=== PATIENT | male | born 1950 | race Caucasian/White ===

== ENCOUNTER 2024-12-21 16:27 | Emergency (ER) | payer MEDICAID, SELFPAY ==
[2024-12-21] VITALS (30 sets, daily range): BP systolic 137–176; BP diastolic 64–82; PULSE 50–56; RESP 15–27; TEMP 36.8; O2SAT 89–97
--- NOTE | 2024-12-21 16:47 | ED_ITS ---
HPI - Neuro Symptoms/Deficit General Chief Complaint: Neuro Symptoms/Deficit Stated Complaint: slurring speech, weakness Time Seen by Provider: 12/21/24 16:45 Source: patient Mode of arrival: Ambulatory History of Present Illness HPI Narrative: Patient brought here by for left facial droop and slurred speech. No limb numbness tingling or weakness. Last time saw patient 830 this morning. He states he went down for a nap at 1:00 p.m. feeling his normal self. She called him around 2:00 a.m. and his speech did not sound right. Patient denies any headache. No prior history of stroke. Patient has obvious left lip droop. Wrinkling of the forehead is preserved. Patient does have history of cognitive dementia and history of last well known at this time would have to be 830 this morning when his was there. On Anticoagulants: No Related Data Allergies Allergy/AdvReac Type Severity Reaction Status Date / Time No Known Drug Allergies Allergy Verified 12/21/24 17:29 Review of Systems Review of Systems Narrative: GENERAL: Negative chills, fatigue, malaise, fever, sweats. HEENT: Negative sinus pain, ear pain, sore throat RESPIRATORY: Negative dyspnea, cough CARDIOVASCULAR: Negative chest pain, palpitations GASTROINTESTINAL: Negative vomiting, nausea, abdominal pain : Negative dysuria, frequency, hematuria MUSCULOSKELETAL: Negative muscle or bony pain SKIN: Negative rash, skin lesions NEUROLOGIC: Negative weakness, numbness, positive facial droop positive slurred speech ROS Unobtainable: All systems reviewed & are unremarkable except as noted in HPI and below Hematologic/Lymphatic On Anticoagulants: No Exam Narrative Exam Narrative: GENERAL: in no distress, not toxic not dyspneic HEAD: Normocephalic. EYES: Pupils equal round ENT: Mucous membranes moist. NECK: Trachea midline. CARDIOVASCULAR: Regular rate and rhythm RESPIRATORY: Clear to auscultation. Breath sounds equal bilaterally. No wheezes, rales, or rhonchi. GASTROINTESTINAL: Abdomen soft, non-tender EXTREMITIES: No gross deformities. BACK: No flank tenderness. NEURO: AOx4. Left facial droop with forehead wrinkling intact. Patient has slight slurred speech. Strong equal paving foreman negative pronator drift elevate each leg without drift. Light touch intact bilateral face hands and legs. SKIN: Warm and dry PSYCH: Not anxious, is cooperative Initial Vital Signs Initial Vital Signs: Vital Signs Temperature 98.3 F 06/09/25 16:32 Pulse Rate 50 L 12/21/24 16:32 Respiratory Rate 20 12/21/24 16:32 Blood Pressure 176/82 H 12/21/24 16:32 Pulse Oximetry 95 12/21/24 16:32 Oxygen Delivery Method Room Air 12/21/24 16:32 Scores NIH Stroke Scale Level of Conciousness: Alert, keenly responsive Ask month/age: Answers both questions correctly. Open/close eyes, close hand: Performs both tasks correctly Best gaze horizontal: Normal Visual porter: No visual loss Facial palsy: Partial paralysis, total or near total paralysis of lower face Left arm drift: No drift for full 10 sec Right arm drift: No drift for full 10 sec Left leg drift: No drift for full 5 sec Right leg drift: No drift for full 5 sec Limb ataxia: Absent Sensory on face/arms/legs: Normal, no sensory loss Best language: Mild to moderate, slurs some words Dysarthria: Mild to mod,some slurring Extinction or inattention: No abnormality Total NIH Stroke scale score: 4 Course Orders Ordered: Discontinued Medications Nicardipine HCl 25 mg/ Sodium (Chloride) 250 mls @ 50 mls/hr IV TITRATE JAMA; Protocol Last Titration: 12/21/24 18:07 Dose: 2.5 mg/hr, 25 mls/hr Documented By: Admin: 12/21/24 17:33 Dose: 5 mg/hr, 50 mls/hr Documented By: HARINDER Vital Signs Vital signs: Vital Signs - 8 hr 12/21/24 16:32 12/21/24 16:53 12/21/24 17:00 Temperature 98.3 F Pulse Rate 50 L 56 L 51 L Respiratory Rate 20 26 H Blood Pressure 176/82 H Pulse Oximetry 95 95 94 Oxygen Delivery Method Room Air Oxygen Flow Rate 12/21/24 17:01 12/21/24 17:01 12/21/24 17:20 Temperature Pulse Rate 51 L Respiratory Rate 22 Blood Pressure 160/72 H 164/74 H Pulse Oximetry 95 Oxygen Delivery Method Oxygen Flow Rate 12/21/24 17:20 12/21/24 17:30 12/21/24 17:32 Temperature Pulse Rate 54 L 53 L 54 L Respiratory Rate 15 20 20 Blood Pressure Pulse Oximetry 94 96 93 Oxygen Delivery Method Oxygen Flow Rate 12/21/24 17:32 12/21/24 17:35 12/21/24 17:35 Temperature Pulse Rate 54 L Respiratory Rate 25 H Blood Pressure 167/78 H 152/71 H Pulse Oximetry 94 Oxygen Delivery Method Oxygen Flow Rate 12/21/24 17:38 12/21/24 17:38 12/21/24 17:40 Temperature Pulse Rate 53 L 53 L Respiratory Rate 21 27 H Blood Pressure 164/79 H Pulse Oximetry 95 94 Oxygen Delivery Method Oxygen Flow Rate 12/21/24 17:40 12/21/24 17:43 12/21/24 17:43 Temperature Pulse Rate 54 L Respiratory Rate 23 Blood Pressure 166/79 H 161/74 H Pulse Oximetry 89 L Oxygen Delivery Method Oxygen Flow Rate 12/21/24 17:45 12/21/24 17:45 12/21/24 17:46 Temperature Pulse Rate 52 L 53 L Respiratory Rate 22 21 Blood Pressure 149/67 H Pulse Oximetry 89 L 89 L Oxygen Delivery Method Oxygen Flow Rate 12/21/24 17:48 12/21/24 17:48 12/21/24 17:50 Temperature Pulse Rate 52 L 52 L Respiratory Rate 21 20 Blood Pressure 158/77 H Pulse Oximetry 90 L 89 L Oxygen Delivery Method Oxygen Flow Rate 12/21/24 17:50 12/21/24 17:52 12/21/24 17:53 Temperature Pulse Rate 53 L 53 L Respiratory Rate 22 20 Blood Pressure 146/71 H Pulse Oximetry 92 92 Oxygen Delivery Method Nasal Cannula Oxygen Flow Rate 2 12/21/24 17:53 12/21/24 17:54 12/21/24 17:56 Temperature Pulse Rate 53 L 53 L Respiratory Rate 27 H 22 Blood Pressure 144/71 H Pulse Oximetry 92 96 Oxygen Delivery Method Nasal Cannula Oxygen Flow Rate 3 12/21/24 17:56 Temperature Pulse Rate Respiratory Rate Blood Pressure 154/73 H Pulse Oximetry Oxygen Delivery Method Oxygen Flow Rate MDM - Neuro Symptoms/Deficit Lab Data 12/21/24 16:44 12/21/24 16:44 Labs: Lab Results 12/21/24 Range/Units 16:44 WBC 10.5 (4.5-11.0) X10^3/uL RBC 4.94 (4.5-5.9) X10^6/uL Hgb 14.8 (13.5-17.5) g/dL Hct 42.6 (41-53) % MCV 86.1 (80-100) fL MCH 30.0 (26-34) PG MCHC 34.8 (30-36) % RDW 14.0 (11.6-14.8) % Plt Count 222 (150-400) X10^3/uL Neut % (Auto) 76.2 H (50-75) % Lymph % (Auto) 15.2 L (25-40) % [place] % (Auto) 7.4 (3-14) % Eos % (Auto) 0.7 L (2-4) % Baso % (Auto) 0.5 (0-2) % Neut # (Auto) 8000 H (8275-9948) /uL Lymph # (Auto) 1600 (3813-3454) /uL [place] # (Auto) 800 (0-900) /uL Eos # (Auto) 100 (0-450) /uL Baso # (Auto) 100 (0-100) /uL PT 11.8 (9.4-12.5) SECONDS INR 1.0 (0.9-1.3) APTT 36 (25.1-36.5) SECONDS Sodium 138 (137-145) mmol/L Potassium 4.4 (3.4-5.1) mmol/L Chloride 106 (98-107) mmol/L Carbon Dioxide 23 (22-32) mmol/L BUN 14 (9-20) mg/dL Creatinine 1.05 (0.66-1.25) mg/dL Estimated GFR > 60 (>60) mL/min BUN/Creatinine Ratio 13.3 (6-22) Glucose 100 H (70-99) mg/dL Calcium 9.5 (8.4-10.2) mg/dL Total Bilirubin 0.9 (0.2-1.3) mg/dL AST 23 (17-59) IU/L ALT 18 (<50) IU/L Alkaline Phosphatase 58 (38-126) U/L Total Creatine Kinase 56 (55-170) U/L Troponin I 0.032 (0.01-0.034) ng/mL Total Protein 7.2 (6.3-8.2) g/dL Albumin 4.4 (3.5-5.0) g/dL Globulin 2.8 (1.7-4.1) g/dL Albumin/Globulin Ratio 1.6 (1.0-2.8) Imaging Data CTA - brain/neck: Radiologist's Impression: [address] [address] [address] Scan Report Signed Patient: Momo Cedeno MR#: [id number] : 1950 Acct:[id number] Age/Sex: 74 / M Date of Service: 12/21/24 Loc: ED Accession Number: [id number] Procedure: CT angio head and neck Ordering Provider: Spenser Knight MD PROCEDURE: CT ANGIO HEAD AND NECK INDICATIONS: Left facial droop TECHNIQUE: After the administration of intravenous contrast, 1 mm thick sections acquired from the aortic arch through the [place] of [place]. 3-dimensional uvtdiro-kdvthmyfr-nefvjivzvx (MIP) and/or volume rendering reformats were acquired of the central intracranial vasculature and neck separately. For radiation dose reduction, the following was used: automated exposure control, adjustment of mA and/or kV according to patient size. COMPARISON: None. FINDINGS: Image quality: Diagnostic. Cerebral CT Angiogram: Internal carotid arteries: No acute findings. Intracranial ICA are patent with no significant stenosis. No occlusion. No aneurysm. Anterior cerebral arteries: Unremarkable. No significant stenosis. No occlusion. No aneurysm. Middle cerebral arteries: Unremarkable. No significant stenosis. No occlusion. No aneurysm. Posterior cerebral arteries: Unremarkable. No significant stenosis. No occlusion. No aneurysm. Basilar artery: Unremarkable. No significant stenosis. No occlusion. No aneurysm. Vertebral arteries: Unremarkable as visualized. Dural venous sinuses: Unremarkable given phase of enhancement. Other: Hemorrhagic right basal ganglia infarct is unchanged. Neck CT Angiogram: Internal carotid arteries: Unremarkable. No significant stenosis. No dissection or occlusion. Common carotid arteries: Unremarkable. No significant stenosis. No dissection or occlusion. External carotid arteries: Unremarkable. No occlusion. Vertebral arteries: Unremarkable. No significant stenosis. No dissection or occlusion. Aortic Arch and Mediastinum: Partially visualized aortic arch unremarkable without evidence of aneurysm. Origins of the great vessels unremarkable. Other: Arterial phase soft tissues of the neck and chest are unremarkable. IMPRESSION: No significant intracranial arterial abnormality is seen. No significant abnormality is seen within the arteries of the neck. Please see same day head CT regarding the right basal ganglia hemorrhagic infarct. Any quantitative measurements of stenosis were performed using NASCET criteria. Dictated by: Rafa Casas M.D. on 12/21/2024 at 16:59 Approved by: Rafa Casas M.D. on 12/21/2024 at 17:01 CT scan - head: Radiologist's Impression: [address] [address] [address] Scan Report Signed Patient: Momo Cedeno MR#: [id number] : 1950 Acct:[id number] Age/Sex: 74 / M Date of Service: 12/21/24 Loc: ED Accession Number: [id number] Procedure: CT Stroke Ordering Provider: Spenser Knight MD PROCEDURE: CT STROKE INDICATIONS: Left facial droop TECHNIQUE: Noncontrast 4.5 mm thick angled axial sections acquired from the foramen magnum to the vertex, with coronal reformats. For radiation dose reduction, the following was used: automated exposure control, adjustment of mA and/or kV according to patient size. COMPARISON: [facility], CT, CT ANGIO HEAD AND NECK, 12/21/2024, 16:46. FINDINGS: Image quality: Diagnostic. CSF spaces: Basal cisterns are patent. No extra-axial fluid collections. The ventricles are symmetric in size and shape. Brain: Hemorrhagic infarct of the right basal ganglia measuring 1.3 x 1.6 x 2.2 cm. No significant mass effect. No midline shift. Skull and face: Calvarium and visualized facial bones appear intact, without suspicious lesions. Sinuses: Visualized sinuses and mastoids are clear. IMPRESSION: Right basal ganglia hemorrhagic infarct measuring 1.6 x 1.3 x 2.2 cm. No significant mass effect or midline shift. Findings discussed with Dr. Knight at 4:58 p.m. On 12/21/2024. This study fulfills neurological imaging criteria for inclusion or exclusion of acute stroke therapies based on available published neurological guidelines. Dictated by: Rafa Casas M.D. on 12/21/2024 at 16:56 Approved by: Rafa Casas M.D. on 12/21/2024 at 16:58 [facility] Narrative Medical decision making narrative: Patient brought here by for left facial droop and slurred speech. No limb numbness tingling or weakness. Last time saw patient 830 this morning. He states he went down for a nap at 1:00 p.m. feeling his normal self. She called him around 2:00 a.m. and his speech did not sound right. Patient denies any headache. No prior history of stroke. Patient has obvious left lip droop. Wrinkling of the forehead is preserved. Patient does have history of cognitive dementia and history of last well known at this time would have to be 830 this morning when his was there. After history and exam, CT head CT angiogram head and neck EKG CBC CMP troponin, neurology consult [facility] Medical records reviewed: No recent visit for this complaint Differential considered: Includes but not limited to stroke Pearson's palsy Lab Test results independently reviewed as above. Pertinent findings: WBC 10.5 hemoglobin 14.8 INR 1.0 sodium 138 potassium 4.4 BUN 14 creatinine 1.05 GFR greater than 60 glucose 100 troponin 0.032 Independently reviewed EKG sinus bradycardia rate 51 Imaging studies independently reviewed: CT head right basal ganglia hemorrhagic infarct 2 x 1.5 cm, CT angiogram head and neck no large vessel occlusion Consultations: 4:[address] Casas, radiologist, there is a hemorrhagic stroke right basilar infarct 2 cm, no shift 5:13 p.m.. Spoke with [facility] stroke team, Dr. Hernadez, she would like patient transferred to [facility] Emergency Department. Please start nicardipine, systolic to be less than 160 Re-evaluations: 5:30 p.m.. Patient and understand need to transfer to [facility] for neurosurgery evaluation as well as Neurology evaluation. They do understand no TNK no tPA as this is hemorrhagic stroke. Discussion: Appropriate for transfer for higher level of care and for air lift given acuity of symptoms. This is hemorrhagic stroke. No T and K or tPA indicated. Patient remains hemodynamically stable. Neurologically intact other than left facial droop Diagnosis: Hemorrhagic stroke Stroke Core Measures Contraindications for TPA in CVA: Presentation c/w SA Bleed Critical Care Time Critical Care Time Attestation: Critical Care Time 35 minutes: Critical care time is separate from other billable procedures. This critical care time includes consultation with family and other consulting doctors, review of records, and interpretation of data from labs, EKGs, imaging, etc. Discharge Plan Departure Patient Disposition: [facility] Clinical Impression: Cerebrovascular accident Qualifiers: CVA mechanism: unspecified Qualified Code(s): I63.9 - Cerebral infarction, unspecified
[2024-12-21 16:52] LABS: Add Manual Diff / Slide Review NO; Basophils Absolute Auto 100 /uL (0-100); Basophils Percent Auto 0.5 % (0-2); Eosinophils Absolute Auto 100 /uL (0-450); Eosinophils Percent Auto 0.7 % (2-4); Hematocrit 42.6 % (41-53); Hemoglobin 14.8 g/dL (13.5-17.5); Lymphocytes Absolute Auto 1600 /uL (1100-4500); Lymphocytes Percent Auto 15.2 % (25-40); Mean Corpuscular HGB Conc 34.8 % (30-36); Mean Corpuscular Volume 86.1 fL (80-100); Monocytes Absolute Auto 800 /uL (0-900); Monocytes Percent Auto 7.4 % (3-14); Neutrophils Absolute Auto 8000 /uL (1500-7000); Neutrophils Percent Auto 76.2 % (50-75); Platelet Count 222 X10^3/uL (150-400); Red Blood Cell Count 4.94 X10^6/uL (4.5-5.9); White Blood Cell Count 10.5 X10^3/uL (4.5-11.0)
--- NOTE | 2024-12-21 17:00 | EKG_ITS ---
[address] [address] Test Date: 2024-12-21 Pat Name: Momo Cedeno Department: Room: Gender: Male Manager Housekeeping: : 1950 Requested By: Order Number: [id number] Reading MD: Markie Veras Measurements Intervals [place] Rate: 51 P: 56 OR: 202 QRS: -21 QRSD: 94 T: 13 QT: 436 QTc: 401 Interpretive Statements Sinus bradycardia with sinus arrhythmia Electronically Signed On 12-25-2024 0:07:19 PDT by Markie Veras
[2024-12-21 17:02] LABS: Prothrombin Time 11.8 SECONDS (9.4-12.5)
[2024-12-21 17:04] LABS: PTT Partial Thromboplastin Tim 36 SECONDS (25.1-36.5)
[2024-12-21 17:05] LABS: Alanine Aminotransferase 18 IU/L (<50); Albumin 4.4 g/dL (3.5-5.0); Albumin Globulin Ratio 1.6 (1.0-2.8); Alkaline Phosphatase 58 U/L (38-126); Aspartate Aminotransferase 23 IU/L (17-59); BUN Creatinine Ratio 13.3 (6-22); Bilirubin Total 0.9 mg/dL (0.2-1.3); Blood Urea Nitrogen 14 mg/dL (9-20); Calcium 9.5 mg/dL (8.4-10.2); Carbon Dioxide 23 mmol/L (22-32); Chloride 106 mmol/L (98-107); Creatine Kinase 56 U/L (55-170); Estimated Glomerular Filt Rate > 60 mL/min (>60); Globulin 2.8 g/dL (1.7-4.1); Glucose 100 mg/dL (70-99); HEMOLYSIS 25 (0-50); Potassium 4.4 mmol/L (3.4-5.1); Sodium 138 mmol/L (137-145); Total Protein 7.2 g/dL (6.3-8.2)
[2024-12-21 17:17] LABS: Troponin I 0.032 ng/mL (0.01-0.034)
[2024-12-21] MEDS: NICARDIPINE 25 MG in SODIUM CHLORIDE 0.9% 240 ML 50 MG IV (17:33)
--- NOTE | 2024-12-21 17:38 | PC.NURSE ---
Pt started on nicardipine drip with a BP goal of 150/[address] Knight. Pt has left sided facial droop at this time and left sided arm droop. LKW approx 12/21/24 at 1300. Pt's ex- states that's when pt called her and was speaking in slurred speech.
--- NOTE | 2024-12-21 17:52 | PC.NURSE ---
Pt states that he's getting sleepy, pt is currently A&Ox4, 2LPM O2, breathing even/equal/unlabored at this time. Pt + facial droop left side. Provider updated
--- NOTE | 2024-12-21 18:00 | CM.SWNOTE ---
ED DIRECTOR OF GLOBAL TALENT Note: Reviewed EMR and discussed pt with ED staff. DIRECTOR OF GLOBAL TALENT consulted by ED COASTAL[employer] DEFENSE OFFICER to assist with coordinating [employer] Membership prior to flight at 1800. ED DIRECTOR OF GLOBAL TALENT coordinated with pt ex with completing form and paying for 1 year membership. Returned all forms and personal information to pt ex-. [employer] membership obtained and printed for pt ex- for transport. Account #[id number] and Valid Dates: 12/22/2024 to 12/21/2025. NIKKI Catherine
--- NOTE | 2024-12-21 18:08 | PC.NURSE ---
Per pharmist MARIA G Marcelino to titrate nicardipine down to 2.5mg/hr as pt is at BP goal and due to pt contition and being transported by [employer], pt cannot transition to oral at this time
== END 2024-12-21 18:22 | disposition short-term general hospital (02) ==
PROVIDERS: Emergency Provider Emergency Medicine
DX: I63.9 Cerebral infarction, unspecified (principal); R47.81 Slurred speech; R29.810 Facial weakness; R00.1 Bradycardia, unspecified; R29.704 NIHSS score 4
CPT/HCPCS: 70450; 70496; 70498; 80053; 82550; 84484; 85025; 85610; 85730; 93005; 96360; 99285; 99291; Q9967